=== PATIENT | female | born 1960 | race Caucasian/White ===

== ENCOUNTER 2019-01-13 15:01 | Day surgery (SDC) | payer BC, OTHER, SELFPAY ==
[2019-01-13] MEDS: Lactated Ringers 1,000 ML IV SCH ×2 (09:20→17:54)
--- NOTE | 2019-01-13 09:33 | PCM.PREANE ---
Preanesthetic Assessment - Anesthesia/Transfusion/Family Hx Anesthesia History: Prior Anesthesia Without Reaction Family History of Anesthesia Reaction: No Transfusion History: No Prior Transfusion(s) - Review of Systems General: No Symptoms Pulmonary: No Symptoms Cardiovascular: No Symptoms Gastrointestinal: No Symptoms Neurological: No Symptoms Other: Reports: None - Physical Assessment NPO Status Date: 01/12/19 O2 Sat by Pulse Oximetry: 96 Respiratory Rate: 16 Vital Signs: Last Vital Signs Temp 97.3 F 01/13/19 09:10 Pulse 75 01/13/19 09:10 Resp 16 01/13/19 09:10 BP 138/78 01/13/19 09:10 Pulse Ox 96 01/13/19 09:10 Height: 5 ft Weight: 44.452 kg ASA Class: 1 Mental Status: Alert & Oriented x3 Airway Class: Mallampati = 2 Dentition: Reports: Normal Dentition ROM/Head Extension: Full Lungs: Clear to Auscultation, Normal Respiratory Effort Cardiovascular: Regular Rate, Regular Rhythm - Lab Values: Laboratory Last Values WBC 4.45 K/uL (4.0-11.0) 01/12/19 09:52 RBC 4.57 M/uL (4.30-5.90) 01/12/19 09:52 Hgb 13.6 g/dL (12.0-16.0) 01/12/19 09:52 Hct 41.8 % (36.0-46.0) 01/12/19 09:52 MCV 91.5 fL (80.0-98.0) 01/12/19 09:52 MCH 29.8 pg (27.0-32.0) 01/12/19 09:52 MCHC 32.5 g/dL (31.0-37.0) 01/12/19 09:52 RDW Std Deviation 42.0 fl (28.0-62.0) 01/12/19 09:52 RDW Coeff of Wang 13 % (11.0-15.0) 01/12/19 09:52 Plt Count 202 K/uL (150-400) 01/12/19 09:52 MPV 9.70 fL (7.40-12.00) 01/12/19 09:52 Nucleated RBC % 0.0 /100WBC 01/12/19 09:52 Nucleated RBCs # 0 K/uL 01/12/19 09:52 HCG, Qual NEGATIVE (NEG) 01/12/19 09:52 Blood Type AB POSITIVE 01/12/19 09:52 Antibody Screen NEGATIVE 01/12/19 09:52 - Allergies Allergies/Adverse Reactions: Allergies Allergy/AdvReac Type Severity Reaction Status Date / Time Penicillins Allergy Cannot Verified 01/10/19 11:28 Remember - Blood Blood Available: No - Anesthesia Plan Pre-Op Medication Ordered: None (PMH: cystocoel and rectocoel), Antacids (GET for vag hyst with both ant and post repair) - Acknowledgements Anesthesia Type Planned: General Anesthesia Pt an Appropriate Candidate for the Planned Anesthesia: Yes Alternatives and Risks of Anesthesia Discussed w Pt/Guardian: Yes Pt/Guardian Understands and Agrees with Anesthesia Plan: Yes PreAnesthesia Questionnaire HEENT History: Reports: Other (See Below) Other HEENT History: wears glasses/contacts Genitourinary History: Reports: Renal Calculus Musculoskeletal History: Reports: Fracture Other Musculoskeletal History: hx of fx toe - Past Surgical History HEENT Surgical History: Reports: Myringotomy w Tube(s), Tonsillectomy Female Surgical History: Reports: Lithotripsy/ESWL - SUBSTANCE USE Smoking Status *Q: Never Smoker Recreational Drug Use History: No - HOME MEDS Home Medications: Home Meds . [No Known Home Meds] 01/10/19 [History] - CURRENT (IN HOUSE) MEDS Current Meds: Current Medications Lactated Ringer's (Ringers, Lactated) 1,000 mls @ 125 mls/hr IV ASDIRECTED [facility] Last Admin: 01/13/19 09:20 Dose: 125 mls/hr Sodium Chloride (Saline Flush) 10 ml FLUSH ASDIRECTED PRN PRN Reason: Keep Vein Open Sodium Chloride (Saline Flush) 2.5 ml FLUSH ASDIRECTED PRN PRN Reason: Keep Vein Open Sodium Chloride (Normal Saline) 10 ml IV ASDIRECTED PRN PRN Reason: IV Use Discontinued Medications Fluorescein Sodium (Ak-Fluor) Confirm Administered Dose 5 ml .ROUTE .STK-MED ONE Stop: 01/13/19 07:47 Cefazolin Sodium/Dextrose 1 gm (/ Premix) 50 mls @ 100 mls/hr IV ONETIME ONE Stop: 01/12/19 10:02 Acetaminophen (Ofirmev) Confirm Administered Dose 100 mls @ as directed IV .STK- MED ONE Stop: 01/13/19 07:46
--- NOTE | 2019-01-13 11:07 | PCM.OPNOTE ---
- General Post-Op/Procedure Note Date of Surgery/Procedure: 01/13/19 Operative Procedure(s): TVH,BSO and post repear Pre Op Diagnosis: pelvic relaxation Post-Op Diagnosis: Same Anesthesia Technique: General LMA Primary Surgeon: Jerald Pop EBL in mLs: 150 Complications: None Condition: Good Free Text/Narrative:: Intake & Output 01/12/19 01/13/19 01/13/19 22:59 06:59 14:59 Output Total 100 Balance -100
--- NOTE | 2019-01-13 12:23 | PCM.POSTAN ---
POST ANESTHESIA ASSESSMENT - MENTAL STATUS Mental Status: Alert, Oriented - RESPIRATORY Respiratory Status: Respiratory Rate WNL, Airway Patent, O2 Saturation Stable - CARDIOVASCULAR CV Status: Pulse Rate WNL, Blood Pressure Stable - GASTROINTESTINAL GI Status: No Symptoms - POST OP HYDRATION Hydration Status: Adequate & Stable
--- NOTE | 2019-01-13 14:28 | OR ---
SURGEON: Jerald Pop MD DATE OF PROCEDURE: PREOPERATIVE DIAGNOSIS: Pelvic relaxation, mainly rectocele. POSTOPERATIVE DIAGNOSIS: Pelvic relaxation, mainly rectocele. OPERATIONS PERFORMED: Total vaginal hysterectomy, vaginal bilateral salpingo-oophorectomy and posterior repair. PRIMARY SURGEON: Jerald Pop MD. ACID CONDITIONING WORKER: OR tech. ANESTHESIA: General endotracheal intubation, Dr. Tyson. ESTIMATED BLOOD LOSS: 150 mL. COMPLICATIONS: None. FINDINGS: Pelvic relaxation and rectocele. INDICATION FOR SURGERY: [place] referred to the admit note. PROCEDURE IN DETAIL: The patient was brought to the OR, properly identified, and after adequate level of anesthesia, the patient was placed in lithotomy position and prepped and draped in sterile fashion as usual. Straight catheter was used to empty the bladder and then a short weighted speculum was placed in the vagina. Single- tooth tenaculum was applied to the cervix and circular incision around the vaginal mucosa using electrocautery done. The posterior cul-de-sac was entered posteriorly with Delarosa scissor and the perineum and vagina posteriorly tagged with 2-0 Vicryl and held for further identification. The short weighted speculum was placed with extended long weighted speculum. The uterosacral ligament identified from both sides, clamped with a curved Zeppelin, transected, and suture ligated with 2-0 Vicryl pop-off. The same thing was done with the cardinal ligament. The cervical vesicle space was entered anteriorly and the bladder retracted completely away from the operative field. Then, the broad ligament was clamped with curved Zeppelin, transected, and suture ligated with 2- 0 Vicryl pop-off. The uterine vessel was suture ligated at this step. Then, the uterus delivered posteriorly, and the superior pedicle was taken with 90- degree zeppelin. The tubes and ovary included with the specimen. Then, the superior pedicle tied first with an Endoloop and then with a free tie on both sides. Inspection of the operative field shows no oozing, no bleeding. Then, the vaginal cuff was closed with 2-0 Vicryl. The corner sutures included and incorporated with the uterosacral ligament on both sides, and the vaginal cuff was closed with 2-0 Vicryl interrupted sutures. After that, inspection of the pelvis shows that the patient had significant rectocele, but minimum of cystocele, and I felt that repair of the rectocele is more appropriate than repairing the cystocele because the patient has no stress incontinence and she has no bladder symptoms, so I proceeded by injecting the posterior vaginal wall with copious amount of normal saline. This was opened in the midline and dissected it laterally until the levator ani could be exposed on both sides. Then, using 2-0 Vicryl interrupted sutures the defect was closed by approximating the levator ani and endopelvic fascia on both sides. Once we did that, the excess vaginal mucosa at the midline trimmed, and the vaginal cuff was closed with 2-0 Vicryl interrupted, 2-0 Vicryl continuous interlocking for hemostasis. Vaginal pack was placed in place and Trevino catheter was placed for the bladder for drainage. At this time, the procedure ended. The instrument and sponge count were correct. The patient tolerated the procedure well and went to recovery room in stable general condition. PALMA QUINTEROS /[id number]
[~2019-01-13 15:01] MED LIST: Acetaminophen/oxyCODONE 325-5 MG Tab PO PRN; Clindamycin Phosphate in D5W 50 ML ONE; Clindamycin Phosphate in D5W 600 MG in Premix Bag 50 BAG IV ONE; Dexamethasone 4 MG/ML 5 ML MDV ONE; Fluorescein 5 ML Vial ONE; Glycopyrrolate 0.2 MG/ML SDV ONE; HYDROmorphone 2 MG/ML SDV IVPUSH PRN; Ketorolac 30 MG/ML SDV IVPUSH ONE; Ketorolac 30 MG/ML SDV IVPUSH PRN; Lactated Ringers 1,000 ML IV SCH; Lidocaine 2% 5 ML SDV ONE; Midazolam 1 MG/ML 2 ML SDV ONE; Morphine 4 MG/ML Syringe IVPUSH ONE; Neostigmine Methylsulfate 1 MG/ML 5 ML Syringe ONE; Ondansetron 4 MG/2 ML SDV IVPUSH PRN; Ondansetron 4 MG/2 ML SDV ONE; Promethazine 25 MG/ML SDV IM PRN; Propofol 200 MG/20 ML SDV ONE; Sodium Chloride 0.9% 10 ML SDV IV PRN; Sodium Chloride 0.9% 10 ML Syringe FLUSH PRN; Sodium Chloride 0.9% 2.5 ML Syringe FLUSH PRN; Sugammadex Sodium 200 MG/2 ML VIAL ONE; ceFAZolin 1 GM in Premix Bag 1 BAG IV ONE; ePHEDrine 50 MG/ML SDV ONE; fentaNYL 100 MCG/2 ML SDV IVPUSH PRN; fentaNYL 100 MCG/2 ML SDV ONE
[2019-01-13] MEDS: Morphine 4 MG/ML Syringe IVPUSH PRN ×2 (15:19→19:06)
[2019-01-13] MEDS: Acetaminophen/oxyCODONE 325-5 MG Tab PO PRN ×2 (16:30→20:54)
[2019-01-13] MEDS: Ondansetron 4 MG/2 ML SDV IVPUSH PRN (16:53)
[2019-01-14] MEDS: Acetaminophen/oxyCODONE 325-5 MG Tab PO PRN ×3 (03:22→12:05)
[2019-01-14 06:18] LABS: CHLORIDE,CL 101 mmol/L (98-107); SODIUM,NA 132 mmol/L (136-145)
--- NOTE | 2019-01-14 08:27 | PCM.DCSUM1 ---
Discharge Summary - Hospital Course Free Text/Narrative:: Discharge home with self care. Follow up [address] velazquez for post op appointment. Diagnosis: Stroke: No - Discharge Data Discharge Date: 01/14/19 Discharge Disposition: Home, Self-Care 01 Condition: Good - Patient Summary/Data Operative Procedure(s) Performed: TVH,BSO and post repear - Patient Instructions Diet: Usual Diet as Tolerated Activity: As Tolerated, No Lifting Over 20 Pounds, No Strenuous Activities, Rest and Relax Today Driving: Do Not Drive Showering/Bathing: May Shower, No Tub Bathing/Swimming Notify Provider of: Fever, Increased Pain, Swelling and Redness, Drainage, Nausea and/or Vomiting Other/Special Instructions: Discharge home with self care. Follow up [address] velazquez for post op appointment. - Discharge Plan *PRESCRIPTION DRUG MONITORING PROGRAM REVIEWED*: Not Applicable *COPY OF PRESCRIPTION DRUG MONITORING REPORT IN PATIENT SALVADOR: Not Applicable Prescriptions/Med Rec: Acetaminophen/oxyCODONE [Percocet 325-5 MG] 1 - 2 tab PO Q4H PRN #30 tablet PRN Reason: Pain (Moderate 4-6) Home Medications: Home Meds Acetaminophen/oxyCODONE [Percocet 325-5 MG] 1 - 2 tab PO Q4H PRN #30 tablet [Rx] Oxygen Therapy Mode: Room Air - Discharge Summary/Plan Comment DC Time >30 min.: Yes - General Info Date of Service: 01/14/19 Functional Status: Reports: Pain Controlled, Tolerating Diet, Other (folley removed now) - Review of Systems General: Reports: No Symptoms HEENT: Reports: No Symptoms Pulmonary: Reports: No Symptoms Cardiovascular: Reports: No Symptoms Gastrointestinal: Reports: No Symptoms Genitourinary: Reports: No Symptoms Musculoskeletal: Reports: No Symptoms Skin: Reports: No Symptoms Neurological: Reports: No Symptoms Psychiatric: Reports: No Symptoms - Patient Data Vitals - Most Recent: Last Vital Signs Temp 37 C 01/14/19 07:56 Pulse 68 01/14/19 07:56 Resp 16 01/14/19 07:56 BP 95/52 L 01/14/19 07:56 Pulse Ox 96 01/14/19 07:56 Weight - Most Recent: 44.452 kg I&O - Last 24 hours: Intake & Output 01/13/19 01/14/19 01/14/19 22:59 06:59 14:59 Intake Total 913 4662 Output Total 800 900 Balance 113 952 Lab Results - Last 24 hrs: Laboratory Results - last 24 hr 01/14/19 01/14/19 Range/Units 05:32 05:32 WBC 10.79 (4.0-11.0) K/uL RBC 3.50 L (4.30-5.90) M/uL Hgb 10.6 L (12.0-16.0) g/dL Hct 31.8 L (36.0-46.0) % MCV 90.9 (80.0-98.0) fL MCH 30.3 (27.0-32.0) pg MCHC 33.3 (31.0-37.0) g/dL RDW Std Deviation 41.3 (28.0-62.0) fl RDW Coeff of Wang 13 (11.0-15.0) % Plt Count 171 (150-400) K/uL MPV 9.70 (7.40-12.00) fL Neut % (Auto) 79.1 (48.0-80.0) % Lymph % (Auto) 9.3 L (16.0-40.0) % Harmon % (Auto) 11.5 (0.0-15.0) % Eos % (Auto) 0.1 (0.0-7.0) % Baso % (Auto) 0.0 (0.0-1.5) % Neut # (Auto) 8.5 H (1.4-5.7) K/uL Lymph # (Auto) 1.0 (0.6-2.4) K/uL Harmon # (Auto) 1.2 H (0.0-0.8) K/uL Eos # (Auto) 0.0 (0.0-0.7) K/uL Baso # (Auto) 0.0 (0.0-0.1) K/uL Nucleated RBC % 0.0 /100WBC Nucleated RBCs # 0 K/uL Sodium 132 L (136-145) mmol/L Potassium 4.0 (3.5-5.1) mmol/L Chloride 101 (98-107) mmol/L Carbon Dioxide 25.6 (21.0-32.0) mmol/L BUN 14 (7.0-18.0) mg/dL Creatinine 0.7 (0.6-1.0) mg/dL Est Cr Clr Drug Dosing TNP Estimated GFR (MDRD) > 60.0 ml/min Glucose 144 H (74-106) mg/dL Calcium 8.5 (8.5-10.1) mg/dL Med Orders - Current: Current Medications Fentanyl (Sublimaze) 50 mcg IVPUSH Q5M PRN PRN Reason: Pain (severe 7-10) Stop: 01/14/19 10:34 Hydromorphone HCl (Dilaudid) 0.25 mg IVPUSH Q10M PRN PRN Reason: Pain (severe 7-10) Stop: 01/14/19 10:34 Lactated Ringer's (Ringers, Lactated) 1,000 mls @ 125 mls/hr IV ASDIRECTED [facility] Last Admin: 01/13/19 17:54 Dose: 125 mls/hr Lactated Ringer's (Ringers, Lactated) 1,000 mls @ 125 mls/hr IV ASDIRECTED [facility] Last Admin: 01/14/19 00:15 Dose: 125 mls/hr Ketorolac Tromethamine (Toradol) 30 mg IVPUSH Q6H PRN PRN Reason: Pain (severe 7-10) Stop: 01/18/19 11:03 Morphine Sulfate (Morphine) 4 mg IVPUSH Q2H PRN PRN Reason: Pain (severe 7-10) Last Admin: 01/13/19 19:06 Dose: 4 mg Ondansetron HCl (Zofran) 4 mg IVPUSH ONETIME PRN PRN Reason: Nausea/Vomiting Ondansetron HCl (Zofran) 4 mg IVPUSH Q6H PRN PRN Reason: Nausea/Vomiting Last Admin: 01/13/19 16:53 Dose: 4 mg Oxycodone/Acetaminophen (Percocet 325-5 Mg) 1 tab PO Q4H PRN PRN Reason: Pain (moderate 4-6) Oxycodone/Acetaminophen (Percocet 325-5 Mg) 2 tab PO Q4H PRN PRN Reason: Pain (moderate 4-6) Last Admin: 01/14/19 07:59 Dose: 2 tab Promethazine HCl (Phenergan) 25 mg IM Q6H PRN PRN Reason: Nausea/Vomiting Sodium Chloride (Saline Flush) 10 ml FLUSH ASDIRECTED PRN PRN Reason: Keep Vein Open Sodium Chloride (Saline Flush) 2.5 ml FLUSH ASDIRECTED PRN PRN Reason: Keep Vein Open Sodium Chloride (Normal Saline) 10 ml IV ASDIRECTED PRN PRN Reason: IV Use Discontinued Medications Dexamethasone (Dexamethasone) Confirm Administered Dose 20 mg .ROUTE .STK-MED ONE Stop: 01/13/19 09:32 Ephedrine Sulfate (Ephedrine Sulfate) Confirm Administered Dose 50 mg .ROUTE .STK-MED ONE Stop: 01/13/19 10:18 Fentanyl (Sublimaze) Confirm Administered Dose 100 mcg .ROUTE .STK-MED ONE Stop: 01/13/19 09:30 Fluorescein Sodium (Ak-Fluor) Confirm Administered Dose 5 ml .ROUTE .STK-MED ONE Stop: 01/13/19 07:47 Glycopyrrolate (Robinul) Confirm Administered Dose 0.4 mg .ROUTE .STK-MED ONE Stop: 01/13/19 11:00 Cefazolin Sodium/Dextrose 1 gm (/ Premix) 50 mls @ 100 mls/hr IV ONETIME ONE Stop: 01/12/19 10:02 Last Admin: 01/13/19 14:29 Dose: Not Given Acetaminophen (Ofirmev) Confirm Administered Dose 100 mls @ as directed IV .STK- MED ONE Stop: 01/13/19 07:46 Clindamycin Phosphate 600 mg/ (Premix) 50 mls @ 100 mls/hr IV ONETIME ONE Stop: 01/13/19 10:13 Last Admin: 01/13/19 09:50 Dose: 100 mls/hr Clindamycin Phosphate (Cleocin In D5w) Confirm Administered Dose 50 mls @ as directed .ROUTE .STK-MED ONE Stop: 01/13/19 09:46 Last Admin: 01/13/19 14:21 Dose: Not Given Ketorolac Tromethamine (Toradol) 30 mg IVPUSH ONETIME ONE Stop: 01/13/19 11:04 Last Admin: 01/13/19 13:28 Dose: Not Given Lidocaine (Xylocaine-Mpf 2%) Confirm Administered Dose 5 ml .ROUTE .STK-MED ONE Stop: 01/13/19 09:33 Midazolam HCl (Versed 1 Mg/Ml) Confirm Administered Dose 2 mg .ROUTE .STK-MED ONE Stop: 01/13/19 09:30 Morphine Sulfate (Morphine) 4 mg IVPUSH ONETIME ONE Stop: 01/13/19 13:11 Last Admin: 01/13/19 13:20 Dose: 4 mg Neostigmine Methylsulfate (Neostigmine) Confirm Administered Dose 5 mg .ROUTE .STK-MED ONE Stop: 01/13/19 11:04 Ondansetron HCl (Zofran) Confirm Administered Dose 4 mg .ROUTE .STK-MED ONE Stop: 01/13/19 09:32 Propofol (Diprivan 20 Ml) Confirm Administered Dose 200 mg .ROUTE .STK-MED ONE Stop: 01/13/19 09:30 Sugammadex Sodium (Bridion) Confirm Administered Dose 200 mg .ROUTE .STK-MED ONE Stop: 01/13/19 11:16 - Exam General: Reports: Alert, Oriented, Cooperative, No Acute Distress Lungs: Reports: Clear to Auscultation, Normal Respiratory Effort. Denies: Decreased Breath Sounds, Crackles, Rales, Rhonchi, Rub, Stridor, Wheezing Cardiovascular: Reports: Regular Rate, Regular Rhythm. Denies: No Murmurs GI/Abdominal Exam: Soft, Non-Tender (Female) Exam: Normal External Exam, Other (vaginal packing removed) Rectal (Female) Exam: Deferred Back Exam: Reports: Normal Inspection, Full Range of Motion Extremities: Normal Inspection, Normal Range of Motion, Non-Tender, No Pedal Edema Skin: Reports: Warm, Dry, Intact Wound/Incisions: Reports: Healing Well. Denies: No Drainage, Erythema Neurological: Reports: No New Focal Deficit, Normal Speech, Normal Tone, Strength Equal Bilateral Psy/Mental Status: Reports: Alert, Normal Affect, Normal Mood
--- NOTE | 2019-01-14 08:30 | PCM48HPAN ---
Post Anesthesia Note - EVALUATION WITHIN 48HRS OF ANESTHETIC Vital Signs in Normal Range: Yes Patient Participated in Evaluation: Yes Respiratory Function Stable: Yes Airway Patent: Yes Cardiovascular Function Stable: Yes Hydration Status Stable: Yes Pain Control Satisfactory: Yes Nausea and Vomiting Control Satisfactory: Yes Mental Status Recovered: Yes Resp Rate: 16
[2019-01-14] MEDS: Ondansetron 4 MG/2 ML SDV IVPUSH PRN (11:16)
== END 2019-01-14 15:45 | disposition home or self-care (01) ==
LOC: MW.SDS 15:01 → MW.MS 15:02 → MW.SDS 01-14 15:45
PROVIDERS: ATTEND Obstetrics & Gynecology
PROC: 0UT97ZZ Resection of Uterus, Via Natural or Artificial Opening (ICD-10-PCS; principal; 2019-01-13)
PROC: 0UT27ZZ Resection of Bilateral Ovaries, Via Natural or Artificial Opening (ICD-10-PCS; 2019-01-13)
PROC: 0UT77ZZ Resection of Bilateral Fallopian Tubes, Via Natural or Artificial Opening (ICD-10-PCS; 2019-01-13)
PROC: 0JQC0ZZ Repair Pelvic Region Subcutaneous Tissue and Fascia, Open Approach (ICD-10-PCS; 2019-01-13)
DX: N81.89 Other female genital prolapse (principal); N81.6 Rectocele
CPT/HCPCS: 36415; 57250; 58262; 80048; 84703; 85025; 85027; 86850; 86900; 86901; 88307; A4217; A9270; J0131; J1100; J2001; J2250; J2270; J2405; J2704; J3010; J3490; J7120; 00944

== ENCOUNTER 2019-07-04 10:30 | Observation (INO) | payer BC ==
[~2019-07-04 10:30] MED LIST changes: -Acetaminophen/oxyCODONE 325-5 MG Tab PO PRN; -Clindamycin Phosphate in D5W 50 ML ONE; -Clindamycin Phosphate in D5W 600 MG in Premix Bag 50 BAG IV ONE; -Dexamethasone 4 MG/ML 5 ML MDV ONE; -Fluorescein 5 ML Vial ONE; -Glycopyrrolate 0.2 MG/ML SDV ONE; -HYDROmorphone 2 MG/ML SDV IVPUSH PRN; -Ketorolac 30 MG/ML SDV IVPUSH ONE; -Ketorolac 30 MG/ML SDV IVPUSH PRN; -Lidocaine 2% 5 ML SDV ONE; -Midazolam 1 MG/ML 2 ML SDV ONE; -Morphine 4 MG/ML Syringe IVPUSH ONE; -Neostigmine Methylsulfate 1 MG/ML 5 ML Syringe ONE; -Ondansetron 4 MG/2 ML SDV IVPUSH PRN; -Ondansetron 4 MG/2 ML SDV ONE; -Promethazine 25 MG/ML SDV IM PRN; -Propofol 200 MG/20 ML SDV ONE; -Sodium Chloride 0.9% 10 ML SDV IV PRN; -Sodium Chloride 0.9% 10 ML Syringe FLUSH PRN; -Sodium Chloride 0.9% 2.5 ML Syringe FLUSH PRN; -Sugammadex Sodium 200 MG/2 ML VIAL ONE; -ceFAZolin 1 GM in Premix Bag 1 BAG IV ONE; -ePHEDrine 50 MG/ML SDV ONE; -fentaNYL 100 MCG/2 ML SDV IVPUSH PRN; -fentaNYL 100 MCG/2 ML SDV ONE
[2019-07-04] MEDS ORDERED: Glycopyrrolate 0.2 MG/ML SDV ONE ×2 (10:31→12:43)
[2019-07-04] MEDS ORDERED: fentaNYL 250 MCG/5 ML SDV ONE (10:31)
[2019-07-04] MEDS ORDERED: Lidocaine 2% 5 ML SDV ONE (10:31)
[2019-07-04] MEDS ORDERED: Rocuronium 100 MG/10 ML Syringe ONE (10:31)
[2019-07-04] MEDS ORDERED: Neostigmine Methylsulfate 1 MG/ML 5 ML Syringe ONE (10:31)
[2019-07-04] MEDS ORDERED: Propofol 200 MG/20 ML SDV ONE (10:32)
[2019-07-04] MEDS ORDERED: Midazolam 1 MG/ML 2 ML SDV ONE (10:32)
[2019-07-04 11:24] LABS: BLOOD UREA NITROGEN,BUN 19 mg/dL (7.0-18.0); CHLORIDE,CL 102 mmol/L (98-107); GLUCOSE RANDOM 97 mg/dL (74-106); POTASSIUM,K 3.8 mmol/L (3.5-5.1); SODIUM,NA 138 mmol/L (136-145)
[2019-07-04] MEDS ORDERED: Scopolamine 1.5 MG Transdermal Patch TRDERM PRN (11:37)
--- NOTE | 2019-07-04 11:39 | PCM.PREANE ---
Preanesthetic Assessment - Anesthesia/Transfusion/Family Hx Anesthesia History: Prior Anesthesia Reaction (nausea after hyst this summer) Other Type of Anesthesia Reaction Comment: only after Hysterectomy Transfusion History: No Prior Transfusion(s) Type of Transfusion Reactions: Reports: Unknown - Review of Systems General: No Symptoms Pulmonary: No Symptoms Cardiovascular: No Symptoms Gastrointestinal: No Symptoms Neurological: No Symptoms Other: Reports: None - Physical Assessment NPO Status Date: 07/03/19 Height: 5 ft 0.5 in Weight: 43.998 kg ASA Class: 2 Mental Status: Alert & Oriented x3 Airway Class: Mallampati = 2 Dentition: Reports: Normal Dentition ROM/Head Extension: Full Lungs: Clear to Auscultation, Normal Respiratory Effort Cardiovascular: Regular Rate, Regular Rhythm - Lab Values: Laboratory Last Values WBC 5.88 K/uL (4.0-11.0) 07/04/19 10:56 RBC 4.75 M/uL (4.30-5.90) 07/04/19 10:56 Hgb 14.4 g/dL (12.0-16.0) 07/04/19 10:56 Hct 42.1 % (36.0-46.0) 07/04/19 10:56 MCV 88.6 fL (80.0-98.0) 07/04/19 10:56 MCH 30.3 pg (27.0-32.0) 07/04/19 10:56 MCHC 34.2 g/dL (31.0-37.0) 07/04/19 10:56 RDW Std Deviation 39.7 fl (28.0-62.0) 07/04/19 10:56 RDW Coeff of Wang 12 % (11.0-15.0) 07/04/19 10:56 Plt Count 204 K/uL (150-400) 07/04/19 10:56 MPV 9.90 fL (7.40-12.00) 07/04/19 10:56 Nucleated RBC % 0.0 /100WBC 07/04/19 10:56 Nucleated RBCs # 0 K/uL 07/04/19 10:56 Sodium 138 mmol/L (136-145) 07/04/19 10:56 Potassium 3.8 mmol/L (3.5-5.1) 07/04/19 10:56 Chloride 102 mmol/L (98-107) 07/04/19 10:56 Carbon Dioxide 25.0 mmol/L (21.0-32.0) 07/04/19 10:56 BUN 19 mg/dL (7.0-18.0) H 07/04/19 10:56 Creatinine 0.6 mg/dL (0.6-1.0) 07/04/19 10:56 Est Cr Clr Drug Dosing 71.85 mL/min 07/04/19 10:56 Estimated GFR (MDRD) > 60.0 ml/min 07/04/19 10:56 Glucose 97 mg/dL (74-106) 07/04/19 10:56 Calcium 9.1 mg/dL (8.5-10.1) 07/04/19 10:56 - Allergies Allergies/Adverse Reactions: Allergies Allergy/AdvReac Type Severity Reaction Status Date / Time Penicillins Allergy Cannot Verified 06/28/19 12:04 Remember - Blood Blood Available: No - Anesthesia Plan Pre-Op Medication Ordered: None - Acknowledgements Anesthesia Type Planned: General Anesthesia Pt an Appropriate Candidate for the Planned Anesthesia: Yes Alternatives and Risks of Anesthesia Discussed w Pt/Guardian: Yes Pt/Guardian Understands and Agrees with Anesthesia Plan: Yes PreAnesthesia Questionnaire HEENT History: Reports: Other (See Below) Other HEENT History: wears glasses/contacts Genitourinary History: Reports: Renal Calculus 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: Musculoskeletal History: Reports: Fracture Other Musculoskeletal History: hx of fx toe - Past Surgical History HEENT Surgical History: Reports: Myringotomy w Tube(s), Tonsillectomy Female Surgical History: Reports: Hysterectomy, Lithotripsy/ESWL, Salpingo- Oophorectomy - SUBSTANCE USE Smoking Status *Q: Never Smoker Recreational Drug Use History: No - HOME MEDS Home Medications: Home Meds Ibuprofen 400 mg PO ASDIRECTED PRN 06/28/19 [History] Naproxen Sodium 275 mg PO ASDIRECTED PRN 06/28/19 [History] - CURRENT (IN HOUSE) MEDS Current Meds: Current Medications Lactated Ringer's (Ringers, Lactated) 1,000 mls @ 125 mls/hr IV ASDIRECTED [facility] Discontinued Medications Fentanyl (Sublimaze) Confirm Administered Dose 250 mcg .ROUTE .STK-MED ONE Stop: 07/04/19 10:32 Glycopyrrolate (Robinul) Confirm Administered Dose 0.4 mg .ROUTE .STK-MED ONE Stop: 07/04/19 10:32 Lidocaine (Xylocaine-Mpf 2%) Confirm Administered Dose 5 ml .ROUTE .STK-MED ONE Stop: 07/04/19 10:32 Midazolam HCl (Versed 1 Mg/Ml) Confirm Administered Dose 2 mg .ROUTE .STK-MED ONE Stop: 07/04/19 10:33 Neostigmine Methylsulfate (Neostigmine) Confirm Administered Dose 5 mg .ROUTE .STK-MED ONE Stop: 07/04/19 10:32 Propofol (Diprivan 20 Ml) Confirm Administered Dose 200 mg .ROUTE .STK-MED ONE Stop: 07/04/19 10:33 Rocuronium [place] (Zemuron) Confirm Administered Dose 100 mg .ROUTE .STK-MED ONE Stop: 07/04/19 10:32
[2019-07-04] MEDS ORDERED: ceFAZolin 1 GM Vial ONE (12:44)
[2019-07-04] MEDS ORDERED: Sodium Chloride 0.9% 20 ML ONE (12:44)
[2019-07-04] MEDS ORDERED: Fluorescein 5 ML Vial ONE (13:23)
[2019-07-04] MEDS ORDERED: Furosemide 40 MG/4 ML VIAL ONE (13:23)
--- NOTE | 2019-07-04 14:32 | PCM.POSTAN ---
POST ANESTHESIA ASSESSMENT - MENTAL STATUS Mental Status: Alert - VITAL SIGNS Vital Signs: Last Vital Signs Temp 36.6 C 07/04/19 13:56 Pulse 78 07/04/19 14:26 Resp 16 07/04/19 14:26 BP 100/62 07/04/19 14:26 Pulse Ox 95 07/04/19 14:26 - RESPIRATORY Respiratory Status: Respiratory Rate WNL - CARDIOVASCULAR CV Status: Pulse Rate WNL - GASTROINTESTINAL GI Status: No Symptoms - POST OP HYDRATION Hydration Status: Adequate & Stable
--- NOTE | 2019-07-04 15:12 | CR ---
Pelvis: AP view of the pelvis was obtained with hips in slight frog-leg position. Joint spaces within both hips are maintained. Sacroiliac joints appear within normal limits. Possible partial transitional segment on the right side at the lumbosacral junction. Osteopenia is seen. No acute fracture or other abnormality is seen. Impression: 1. Findings as noted above. 2. Nothing acute is appreciated. Diagnostic code #2 This report was dictated in [place] Standard Time MTDD
[2019-07-04] MEDS ORDERED: Ketorolac 30 MG/ML SDV IVPUSH ONE ×2 (15:37→15:40)
[2019-07-04] MEDS ORDERED: Morphine 4 MG/ML Syringe IVPUSH PRN (15:40)
[2019-07-04] MEDS ORDERED: Promethazine 25 MG/ML SDV IM PRN (15:40)
[2019-07-04] MEDS ORDERED: Ondansetron 4 MG/2 ML SDV IVPUSH PRN (15:40)
[2019-07-04] MEDS ORDERED: Acetaminophen/oxyCODONE 325-5 MG Tab PO PRN (15:40)
--- NOTE | 2019-07-04 15:47 | PCM.OPNOTE ---
- General Post-Op/Procedure Note Date of Surgery/Procedure: 07/04/19 Operative Procedure(s): anterior colporrhaphy, uterosacral ligament suspension of vaginal vault, cystscopy Findings: 3rd degree cystocele, 3rd degree vaginal prolapse, adhesions of small bowel to left vaginal cuff. Cystoscopy shows copious flow of urine from bilateral ureteral orifices. 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
[2019-07-04] MEDS: Ketorolac 30 MG/ML SDV IVPUSH SCH ×2 (16:01→22:05)
--- NOTE | 2019-07-04 17:33 | OR ---
SURGEON: Moira Mooney M.D. 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 PRIMARY SURGEON: Moira Mooney M.D. ENROBER TENDER: Josie Parker M.D. ANESTHESIA: General LMA. ESTIMATED BLOOD LOSS: 30 mL. FLUIDS: 1100 mL of crystalloid. FINDINGS: Third-degree uterine prolapse, third-degree vault prolapse, adhesion of small bowel to the left pelvic sidewall. Normal cystoscopy including flow from bilateral ureteral orifices. PROCEDURE: Anterior colporrhaphy, vaginal vault suspension to the uterosacral ligament, and cystoscopy. COMPLICATIONS: None known. DISPOSITION: Stable to recovery. BRIEF HISTORY: This is a 58-year-old female. She is approximately 8 months out from a vaginal hysterectomy and posterior colporrhaphy. Several months following the procedure, she began to notice a bulge from her vagina. She was evaluated in clinic and she was noted to have a cystocele and vaginal vault prolapse with a possible anterior enterocele. She was offered referral to urogynecologist, which she declined. She was offered a pessary, which she declined. She desires to proceed with surgical intervention, and therefore, I explained that an anterior colporrhaphy would be inadequate for the prolapse due to high likelihood of recurrence if the vault was not appropriately suspended and therefore my recommendation would be to proceed with an anterior colporrhaphy with vaginal vault suspension to the uterosacral ligaments and cystoscopy to confirm that there was no damage to the ureters with risks discussed including bleeding; infection; injury to bowel, bladder, blood vessels or other organs; risk of thromboembolic event; risk of anesthesia; risk of recurrence up to 30%. Understanding all these risks, she does desire to proceed. DESCRIPTION OF PROCEDURE: With the patient in dorsal lithotomy position, under adequate general LMA analgesia, the perineum and vagina were prepped with Betadine and draped in usual fashion for vaginal surgery. SCDs were in place. Trevino catheter had been placed and an appropriate time-out was held. She received a gram of Ancef IV prior to proceeding. On examination, the vagina was extremely short, only approximately 4 cm in length posteriorly. There was a third-degree cystocele and third-degree uterine prolapse. I began by grasping the vagina above the point where rugation stopped. This was approximately 3 cm cephalad from the urethral meatus and then grasped the vaginal cuff in the midline. Hydrodissection was performed. A 15-blade scalpel was used to incise the anterior vaginal wall which was then undermined with Metzenbaum scissors and the muscularis layer was from the overlying vaginal mucosa. In doing so, the cuff was reached. The cuff was extremely friable and opened easily revealing the enterocele. Upon exploration of the intraperitoneal cavity, note was made of a dense small bowel adhesion to the left of the vaginal cuff along the vaginal pelvic sidewall. This made it impossible to safely consider utilization of the left uterosacral ligament. The location of this was noted by placing a suture approximately 1 cm inferior to the location of the small bowel adhesion to be sure that all other sutures were well away from this location. The right uterosacral ligament, however, was easily identified and provided excellent support. Two sutures of Tycron were placed in the right uterosacral ligament, going lateral to medial. These were tied and retained. The muscularis layer anteriorly was then reapproximated using multiple interrupted mattress sutures of 2-0 Polysorb. One arm of the retained uterosacral ligament ligature was placed on the right posterior cuff and one arm was placed on the left posterior cuff, the other arm was placed on the right anterior cuff, and the other arm was placed on the left anterior cuff. Prior to tying these, cystoscopy was performed with tension on the 2 uterosacral ligament ligatures, both of which were on the right side. There was copious flow of bright green urine from the right ureter. There was also copious flow from the left ureter. There was no evidence of any trauma to the bladder mucosa. This being completed, the Tycron was tied providing excellent support of the vaginal cuff. Due to the very foreshortened vagina, I did not trim any of the vaginal mucosa, but closed with a running lock suture starting at the apex of the vaginal incision and proceeding in a running locked manner incorporating the vaginal cuff ensuring that I stayed well away from the noted small bowel adhesion. This being completed, the Trevino catheter had been replaced after the cystoscopy. The vagina was packed with Premarin instilled vaginal packing. Final sponge and needle count was correct; however, there was a misunderstanding as to the fact that we were entering the abdominal cavity and therefore instrument count had not been performed prior to the procedure. Therefore, as an extreme precaution, an x-ray was taken and showed no retained instruments. The patient was transferred to recovery in good condition . PERRY / NELI /[id number]
[2019-07-05] MEDS: Ketorolac 30 MG/ML SDV IVPUSH SCH ×2 (03:59→04:09)
[2019-07-05] MEDS: Acetaminophen/oxyCODONE 325-5 MG Tab PO PRN ×3 (04:08→11:57)
[2019-07-05 06:48] LABS: BLOOD UREA NITROGEN,BUN 16 mg/dL (7.0-18.0); CARBON DIOXIDE,CO2 28.9 mmol/L (21.0-32.0); CHLORIDE,CL 104 mmol/L (98-107); GLUCOSE RANDOM 103 mg/dL (74-106); POTASSIUM,K 3.7 mmol/L (3.5-5.1); SODIUM,NA 139 mmol/L (136-145)
--- NOTE | 2019-07-05 08:02 | PCM48HPAN ---
Post Anesthesia Note - EVALUATION WITHIN 48HRS OF ANESTHETIC Vital Signs in Normal Range: Yes Patient Participated in Evaluation: Yes Respiratory Function Stable: Yes Airway Patent: Yes Cardiovascular Function Stable: Yes Hydration Status Stable: Yes Pain Control Satisfactory: Yes Nausea and Vomiting Control Satisfactory: Yes Mental Status Recovered: Yes Vital Signs: Last Vital Signs Temp 98.3 F 07/05/19 07:10 Pulse 58 L 07/05/19 07:10 Resp 16 07/05/19 07:10 BP 84/51 L 07/05/19 07:10 Pulse Ox 96 07/05/19 07:10
--- NOTE | 2019-07-05 08:46 | PCM.SURGPN ---
- General Info Date of Service: 07/05/19 Date of Surgery/Procedure: 07/04/19 POD#: 1 Post-Op Diagnosis: vaginal prolapse after hysterectomy; cystocele Functional Status: Reports: Pain Controlled, Tolerating Diet, Ambulating. Denies: Urinating (velasquez just removed and packing removed, must void prior to discharge ) - Review of Systems General: Reports: No Symptoms HEENT: Reports: No Symptoms Pulmonary: Reports: No Symptoms Cardiovascular: Reports: No Symptoms Gastrointestinal: Reports: No Symptoms Genitourinary: Reports: No Symptoms Musculoskeletal: Reports: No Symptoms Skin: Reports: No Symptoms Neurological: Reports: No Symptoms Psychiatric: Reports: No Symptoms - Patient Data Vitals - Most Recent: Last Vital Signs Temp 36.8 C 07/05/19 07:10 Pulse 58 L 07/05/19 07:10 Resp 16 07/05/19 07:10 BP 84/51 L 07/05/19 07:10 Pulse Ox 96 07/05/19 07:10 Weight - Most Recent: 43.998 kg I&O - Last 24 Hours: Intake & Output 07/04/19 07/05/19 07/05/19 22:59 06:59 14:59 Intake Total 1100 Output Total 850 200 Balance 1100 -850 -200 Lab Results Last 24 Hrs: Laboratory Results - last 24 hr 07/04/19 07/04/19 07/04/19 Range/Units 10:56 10:56 10:56 WBC 5.88 (4.0-11.0) K/uL RBC 4.75 (4.30-5.90) M/uL Hgb 14.4 (12.0-16.0) g/dL Hct 42.1 (36.0-46.0) % MCV 88.6 (80.0-98.0) fL MCH 30.3 (27.0-32.0) pg MCHC 34.2 (31.0-37.0) g/dL RDW Std Deviation 39.7 (28.0-62.0) fl RDW Coeff of Wang 12 (11.0-15.0) % Plt Count 204 (150-400) K/uL MPV 9.90 (7.40-12.00) fL Neut % (Auto) (48.0-80.0) % Lymph % (Auto) (16.0-40.0) % Valencia % (Auto) (0.0-15.0) % Eos % (Auto) (0.0-7.0) % Baso % (Auto) (0.0-1.5) % Neut # (Auto) (1.4-5.7) K/uL Lymph # (Auto) (0.6-2.4) K/uL Valencia # (Auto) (0.0-0.8) K/uL Eos # (Auto) (0.0-0.7) K/uL Baso # (Auto) (0.0-0.1) K/uL Nucleated RBC % 0.0 /100WBC Nucleated RBCs # 0 K/uL Sodium 138 (136-145) mmol/L Potassium 3.8 (3.5-5.1) mmol/L Chloride 102 (98-107) mmol/L Carbon Dioxide 25.0 (21.0-32.0) mmol/L BUN 19 H (7.0-18.0) mg/dL Creatinine 0.6 (0.6-1.0) mg/dL Est Cr Clr Drug Dosing 71.85 mL/min Estimated GFR (MDRD) > 60.0 ml/min Glucose 97 (74-106) mg/dL Calcium 9.1 (8.5-10.1) mg/dL Blood Type AB POSITIVE Antibody Screen NEGATIVE 07/05/19 07/05/19 Range/Units 06:10 06:10 WBC 9.06 (4.0-11.0) K/uL RBC 3.89 L (4.30-5.90) M/uL Hgb 11.7 L (12.0-16.0) g/dL Hct 35.1 L (36.0-46.0) % MCV 90.2 (80.0-98.0) fL MCH 30.1 (27.0-32.0) pg MCHC 33.3 (31.0-37.0) g/dL RDW Std Deviation 40.7 (28.0-62.0) fl RDW Coeff of Wang 12 (11.0-15.0) % Plt Count 169 (150-400) K/uL MPV 10.00 (7.40-12.00) fL Neut % (Auto) 68.5 (48.0-80.0) % Lymph % (Auto) 19.0 (16.0-40.0) % Valencia % (Auto) 10.7 (0.0-15.0) % Eos % (Auto) 1.7 (0.0-7.0) % Baso % (Auto) 0.1 (0.0-1.5) % Neut # (Auto) 6.2 H (1.4-5.7) K/uL Lymph # (Auto) 1.7 (0.6-2.4) K/uL Valencia # (Auto) 1.0 H (0.0-0.8) K/uL Eos # (Auto) 0.2 (0.0-0.7) K/uL Baso # (Auto) 0.0 (0.0-0.1) K/uL Nucleated RBC % 0.0 /100WBC Nucleated RBCs # 0 K/uL Sodium 139 (136-145) mmol/L Potassium 3.7 (3.5-5.1) mmol/L Chloride 104 (98-107) mmol/L Carbon Dioxide 28.9 (21.0-32.0) mmol/L BUN 16 (7.0-18.0) mg/dL Creatinine 0.7 (0.6-1.0) mg/dL Est Cr Clr Drug Dosing 61.59 mL/min Estimated GFR (MDRD) > 60.0 ml/min Glucose 103 (74-106) mg/dL Calcium 8.3 L (8.5-10.1) mg/dL Blood Type Antibody Screen Med Orders - Current: Current Medications Lactated Ringer's (Ringers, Lactated) 1,000 mls @ 125 mls/hr IV ASDIRECTED JASMIN Last Infusion: 07/04/19 20:28 Dose: Infused Ketorolac Tromethamine (Toradol) 30 mg IVPUSH Q6H [facility] Stop: 07/09/19 15:40 Last Admin: 07/05/19 04:09 Dose: Not Given Morphine Sulfate (Morphine) 4 mg IVPUSH Q2H PRN PRN Reason: Pain (severe 7-10) Last Admin: 07/04/19 16:17 Dose: 4 mg Ondansetron HCl (Zofran) 4 mg IVPUSH Q6H PRN PRN Reason: Nausea/Vomiting Last Admin: 07/04/19 17:44 Dose: 4 mg Oxycodone/Acetaminophen (Percocet 325-5 Mg) 1 tab PO Q4H PRN PRN Reason: Pain (moderate 4-6) Last Admin: 07/05/19 07:29 Dose: 1 tab Oxycodone/Acetaminophen (Percocet 325-5 Mg) 2 tab PO Q4H PRN PRN Reason: Pain (moderate 4-6) Last Admin: 07/04/19 17:44 Dose: 2 tab Promethazine HCl (Phenergan) 25 mg IM Q6H PRN PRN Reason: Nausea/Vomiting Scopolamine (Transderm-Scop) 1.5 mg TRDERM Q72H PRN PRN Reason: Nausea/Vomiting Last Admin: 07/04/19 11:55 Dose: 1.5 mg Discontinued Medications Cefazolin Sodium (Ancef) Confirm Administered Dose 1 gm .ROUTE .STK-MED ONE Stop: 07/04/19 12:45 Fentanyl (Sublimaze) Confirm Administered Dose 250 mcg .ROUTE .STK-MED ONE Stop: 07/04/19 10:32 Fluorescein Sodium (Ak-Fluor) Confirm Administered Dose 5 ml .ROUTE .STK-MED ONE Stop: 07/04/19 13:24 Furosemide (Lasix) Confirm Administered Dose 40 mg .ROUTE .STK-MED ONE Stop: 07/04/19 13:24 Glycopyrrolate (Robinul) Confirm Administered Dose 0.4 mg .ROUTE .STK-MED ONE Stop: 07/04/19 10:32 Glycopyrrolate (Robinul) Confirm Administered Dose 0.2 mg .ROUTE .STK-MED ONE Stop: 07/04/19 12:44 Sodium Chloride (Normal Saline) Confirm Administered Dose 20 mls @ as directed .ROUTE .STK-MED ONE Stop: 07/04/19 12:45 Ketorolac Tromethamine (Toradol) 30 mg IVPUSH ONETIME ONE Stop: 07/04/19 15:38 Last Admin: 07/04/19 15:45 Dose: 30 mg Ketorolac Tromethamine (Toradol) 30 mg IVPUSH ONETIME ONE Stop: 07/04/19 15:41 Last Admin: 07/04/19 16:00 Dose: Not Given Lidocaine (Xylocaine-Mpf 2%) Confirm Administered Dose 5 ml .ROUTE .STK-MED ONE Stop: 07/04/19 10:32 Midazolam HCl (Versed 1 Mg/Ml) Confirm Administered Dose 2 mg .ROUTE .STK-MED ONE Stop: 07/04/19 10:33 Neostigmine Methylsulfate (Neostigmine) Confirm Administered Dose 5 mg .ROUTE .STK-MED ONE Stop: 07/04/19 10:32 Propofol (Diprivan 20 Ml) Confirm Administered Dose 200 mg .ROUTE .STK-MED ONE Stop: 07/04/19 10:33 Rocuronium Thompson (Zemuron) Confirm Administered Dose 100 mg .ROUTE .STK-MED ONE Stop: 07/04/19 10:32 - Exam Wound/Incisions: Other (vaginal packing removed, scant blood) General: Alert, Oriented Neck: Supple Lungs: Clear to Auscultation, Normal Respiratory Effort Cardiovascular: Regular Rate, Regular Rhythm GI/Abdominal Exam: Normal Bowel Sounds, Soft, Non-Tender, No Distention Extremities: Normal Inspection, Non-Tender, No Pedal Edema, Normal Capillary Refill Skin: Warm, Dry, Intact Neurological: No New Focal Deficit Psy/Mental Status: Alert, Normal Affect, Normal Mood - Problem List & Annotations (1) Vaginal vault prolapse after hysterectomy SNOMED Code(s): 45720689 Code(s): N99.3 - PROLAPSE OF VAGINAL VAULT AFTER HYSTERECTOMY Status: Acute Current Visit: Yes (2) Cystocele SNOMED Code(s): 959014219 Code(s): ROP0915 - Status: Acute Current Visit: Yes - Problem List Review Problem List Initiated/Reviewed/Updated: Yes - My Orders Last 24 Hours: Active Orders 24 hr Category Date Time Status Patient Status [ADT] Routine ADT 07/04/19 15:40 Active Antiembolic Devices [RC] PER UNIT ROUTINE Care 07/04/19 09:35 Active Intake and Output [RC] PER UNIT ROUTINE Care 07/04/19 15:41 Active Notify Provider Intake and Out [RC] ASDIRECTED Care 07/04/19 15:40 Active Notify Provider Vital Signs [RC] ASDIRECTED Care 07/04/19 15:40 Active Oxygen Therapy [RC] ASDIRECTED Care 07/04/19 15:40 Active RT Incentive Spirometry [RC] Q2HWA Care 07/04/19 15:40 Active Ready for Discharge [RC] PER UNIT ROUTINE Care 07/05/19 08:40 Ordered Up With Assistance [RC] PER UNIT ROUTINE Care 07/04/19 15:40 Active Up ad Carole [RC] PER UNIT ROUTINE Care 07/04/19 15:40 Active Vital Signs [RC] PER UNIT ROUTINE Care 07/04/19 15:40 Active Regular Diet [DIET] Diet 07/04/19 Dinner Active Acetaminophen/oxyCODONE [Percocet 325-5 MG] Med 07/04/19 15:40 Active 1 tab PO Q4H PRN Acetaminophen/oxyCODONE [Percocet 325-5 MG] Med 07/04/19 15:40 Active 2 tab PO Q4H PRN Ketorolac [Toradol] Med 07/04/19 15:45 Active 30 mg IVPUSH Q6H Lactated Ringers [Ringers, Lactated] 1,000 ml Med 07/04/19 09:45 Active IV ASDIRECTED Morphine Med 07/04/19 15:40 Active 4 mg IVPUSH Q2H PRN Ondansetron [Zofran] Med 07/04/19 15:40 Active 4 mg IVPUSH Q6H PRN Promethazine [Phenergan] Med 07/04/19 15:40 Active 25 mg IM Q6H PRN Scopolamine [Transderm-Scop] Med 07/04/19 11:37 Active 1.5 mg TRDERM Q72H PRN Peripheral IV Discontinue [OM.PC] Routine Oth 07/04/19 15:40 Ordered Remove Vaginal Packing [OM.PC] Per Unit Routine Oth 07/04/19 15:41 Ordered SCD [Sequential Compression Device] [OM.PC] Routine Oth 07/04/19 09:34 Ordered Sequential Compression Device [OM.PC] Per Unit Routine Oth 07/04/19 15:40 Ordered Resuscitation Status Routine Resus Stat 07/04/19 15:40 Ordered Medication Orders Lactated Ringer's (Ringers, Lactated) 1,000 mls @ 125 mls/hr IV ASDIRECTED JASMIN Last Infusion: 07/04/19 20:28 Dose: 125 mls/hr Admin: 07/04/19 11:05 Dose: 125 mls/hr Ketorolac Tromethamine (Toradol) 30 mg IVPUSH Q6H JASMIN Stop: 07/09/19 15:40 Last Admin: 07/05/19 04:09 Dose: Admin: 07/04/19 22:05 Dose: 30 mg Admin: 07/04/19 16:01 Dose: Not Given Morphine Sulfate (Morphine) 4 mg IVPUSH Q2H PRN PRN Reason: Pain (severe 7-10) Last Admin: 07/04/19 16:17 Dose: 4 mg Ondansetron HCl (Zofran) 4 mg IVPUSH Q6H PRN PRN Reason: Nausea/Vomiting Last Admin: 07/04/19 17:44 Dose: 4 mg Oxycodone/Acetaminophen (Percocet 325-5 Mg) 1 tab PO Q4H PRN PRN Reason: Pain (moderate 4-6) Last Admin: 07/05/19 07:29 Dose: 1 tab Admin: 07/05/19 04:08 Dose: 1 tab Oxycodone/Acetaminophen (Percocet 325-5 Mg) 2 tab PO Q4H PRN PRN Reason: Pain (moderate 4-6) Last Admin: 07/04/19 17:44 Dose: 2 tab Promethazine HCl (Phenergan) 25 mg IM Q6H PRN PRN Reason: Nausea/Vomiting Scopolamine (Transderm-Scop) 1.5 mg TRDERM Q72H PRN PRN Reason: Nausea/Vomiting Last Admin: 07/04/19 11:55 Dose: 1.5 mg - Assessment Assessment (Free Text/Narrative):: POD#1 after uterosacral ligament suspension of the vaginal vault, anterior colporrhaphy. Tolerating diet, minimal lower abdominal cramping. Vitals notes , patient asymptomatic with ambulation and denies dizziness, not anemic. - Plan Plan (Free Text/Narrative):: Packing and catheter removed. Dismiss to home after voiding. Precautions reviewed, discussed avoidance of constipation and heavy lifting.
== END 2019-07-05 13:13 | disposition home or self-care (01) ==
LOC: MW.SDS 10:30 → MW.OB 14:54
PROVIDERS: ADMIT Obstetrics & Gynecology; ATTEND Obstetrics & Gynecology
DX: N99.3 Prolapse of vaginal vault after hysterectomy (principal); N73.6 Female pelvic peritoneal adhesions (postinfective); Z88.0 Allergy status to penicillin
CPT/HCPCS: 36415; 51702; 57240; 80048; 85025; 85027; 86850; 86900; 86901; A9270; J0690; J1885; J1940; J2001; J2250; J2270; J2405; J2704; J3010; J3490; J7120; 72170; 72170-26